=== PATIENT | female | born 1955 | race Two or more races ===

== ENCOUNTER → 2018-01-06 09:32 | Outpatient (CLI) | payer OTHER, SELFPAY ==
[2018-01-06 13:03] LABS: Anion Gap 8 (5-15); BUN 10 mg/dL (7-18); BUN/Creat Ratio 14.9 RATIO (10-20); Calcium,Total 9.1 mg/dL (8.5-10.1); Chloride 105 mmol/L (98-107); Cholesterol 195 mg/dL (200); Creatinine, Serum 0.67 mg/dL (0.55-1.02); EST Glomerular Filtration Rate 95 mL/min (>60); Est Glom Filt Rate - Afr Amer 115 mL/min (>60); Glucose 95 mg/dL (74-106); High Density Lipoprotein 46 mg/dL; Potassium 3.9 mmol/L (3.5-5.1); Sodium Level 138 mmol/L (136-145); Thyroid Stim Hormone (TSH) 2.64 uIU/mL (0.358-3.74); Triglycerides 130 mg/dL; Very Low Density Lipoprotein 26 mg/dL (5-40)
== END ==
PROVIDERS: Family Provider Family Medicine; PCP Family Medicine; Visit Provider Family Medicine
DX: E03.9 Hypothyroidism, unspecified (principal); E78.00 Pure hypercholesterolemia, unspecified; I10 Essential (primary) hypertension
CPT/HCPCS: 36415; 80048; 80061; 84443

== ENCOUNTER → 2018-02-19 08:18 | Outpatient (CLI) | payer OTHER, SELFPAY ==
--- NOTE | 2018-02-19 08:20 | BI_ITS ---
MAMMOGRAPHY - BILATERAL SCREENING REASON FOR EXAM: Female, 62 years old. Routine annual screening examination. PERTINENT HISTORY: Non-contributory. TECHNIQUE: Digital bilateral breast gregory (3D mammographic acquisition) in the CC and MLO projections. 2-D mediolateral oblique (MLO) and craniocaudad (CC) views of both breasts were obtained. CAD: Full Field Digital Mammography with Computer Added Detection was performed. COMPARISON: Comparison is made with prior study dated July 29, 2014 November 08, 2011. FINDINGS: Breast Composition: There are scattered areas of fibroglandular density. There are no dominant masses or suspicious calcifications. Stable 7 mm x 7 mm well-defined nodule in the inferior slightly medial aspect of the right breast. A prior ultrasound, this was demonstrated to be a small cyst. No other significant abnormalities are identified. There has been no significant change since the prior study. BI/SCREENING MAMM (CAD), BILAT IMPRESSION: Stable bilateral screening mammogram. Yearly follow-up mammogram recommended. (A) ASSESSMENT CATEGORY: BIRADS Category 2: Benign. A letter regarding these results will be sent to the patient by the facility within 30 days. Approximately 10% of breast cancers are not detected by mammography. A normal mammogram should not delay biopsy of a clinically suspicious abnormality. [id number] Electronically Signed: Alejo Merritt MD at 9:30 EDT Tel [phone], Service support ,
== END ==
PROVIDERS: Family Provider Family Medicine; PCP Family Medicine; Visit Provider Obstetrics & Gynecology
DX: Z12.31 Encounter for screening mammogram for malignant neoplasm of breast (principal)
CPT/HCPCS: 77063; 77067

== ENCOUNTER → 2018-12-23 09:11 | Outpatient (CLI) | payer OTHER, SELFPAY ==
[2018-12-23 11:24] LABS: Anion Gap 7 (5-15); BUN 8 mg/dL (7-18); BUN/Creat Ratio 11.1 RATIO (10-20); Chloride 106 mmol/L (98-107); Creatinine, Serum 0.72 mg/dL (0.55-1.02); EST Glomerular Filtration Rate 87 mL/min (>60); Est Glom Filt Rate - Afr Amer 105 mL/min (>60); Glucose 93 mg/dL (74-106); Sodium Level 141 mmol/L (136-145); T4 Total, Thyroxin 13.6 ug/dL (4.8-13.9); Thyroid Stim Hormone (TSH) 5.16 uIU/mL (0.358-3.74)
== END ==
PROVIDERS: Family Provider Family Medicine; PCP Family Medicine; Referring Provider Family Medicine; Visit Provider Family Medicine
DX: I10 Essential (primary) hypertension (principal); E03.9 Hypothyroidism, unspecified
CPT/HCPCS: 36415; 80048; 84436; 84443

== ENCOUNTER → 2020-02-08 09:25 | Outpatient (CLI) | payer OTHER, SELFPAY ==
[2020-02-08 13:36] LABS: Anion Gap 4 (5-15); BUN 10 mg/dL (7-18); Calcium,Total 9.2 mg/dL (8.5-10.1); Chloride 107 mmol/L (98-107); Cholesterol 194 mg/dL (200); Creatinine, Serum 0.67 mg/dL (0.55-1.02); EST Glomerular Filtration Rate 95 mL/min (>60); Est Glom Filt Rate - Afr Amer 115 mL/min (>60); Glucose 99 mg/dL (74-106); High Density Lipoprotein 49 mg/dL; Potassium 3.7 mmol/L (3.5-5.1); Sodium Level 139 mmol/L (136-145); T4 Total, Thyroxin 13.4 ug/dL (4.8-13.9); Thyroid Stim Hormone (TSH) 0.95 uIU/mL (0.358-3.74); Triglycerides 128 mg/dL; Very Low Density Lipoprotein 26 mg/dL (5-40)
== END ==
PROVIDERS: PCP Family Medicine; Referring Provider Family Medicine; Visit Provider Family Medicine
DX: Z00.00 Encounter for general adult medical examination without abnormal findings (principal)
CPT/HCPCS: 36415; 80048; 80061; 84436; 84443

== ENCOUNTER → 2020-04-07 15:21 | Outpatient (CLI) | payer OTHER, SELFPAY ==
--- NOTE | 2020-04-07 15:22 | BI_ITS ---
MAMMOGRAPHY - BILATERAL SCREENING REASON FOR EXAM: Female, 65 years old. Routine annual screening examination. PERTINENT HISTORY: Non-contributory. TECHNIQUE: Digital bilateral breast mackenzie (3D mammographic acquisition) in the CC and MLO projections. 2-D mediolateral oblique (MLO) and craniocaudad (CC) views of both breasts were obtained. CAD: Full Field Digital Mammography with Computer Added Detection was performed. COMPARISON: Comparison is made with prior study dated 02/19/2018 and 07/29/2014. FINDINGS: Breast Composition: There are scattered areas of fibroglandular density. There are no dominant masses or suspicious calcifications. Since prior study, there has been mild increased size of the retroareolar nodule in the right breast. It presently measures 1 cm x 1.2 cm. Adjacent to this, there is a 5.3 mm well-defined nodule. Correlation with ultrasound is recommended for further evaluation. No other significant abnormalities are identified. BI/SCREEN MAMM (CAD) W/MACKENZIE BILAT IMPRESSION: Mild increase in size of the retroareolar nodule in the right breast as described. Correlation with ultrasound is recommended. ASSESSMENT CATEGORY: BIRADS Category 0: Incomplete. Need additional imaging evaluation. A letter regarding these results will be sent to the patient by the facility within 30 days. Approximately 10% of breast cancers are not detected by mammography. A normal mammogram should not delay biopsy of a clinically suspicious abnormality. [id number] Electronically Signed: Alejo Merritt, at 8:36 EST , Service support ,
--- NOTE | 2020-04-07 15:23 | BD_ITS ---
STUDY: DUAL ENERGY X-RAY ABSORPTIOMETRY / DXA REASON FOR EXAM: Female, 65 years old. Age of kareen 50. Pat is 168.3# and 65.5 and quot; a loss of 1.5 and quot; per pat. Past hx of taking a steroid for about 1 year. Takes levothyroxin. Has a diuretic in her BPM. Exercises a little. TECHNIQUE: Bone Mineral Density (BMD) measurements of lumbar spine and bilateral hips were obtained. COMPARISON: Comparison is made with prior study dated 11/08/2011. FINDINGS: Lumbar Spine (L1-L4): g/cm2 (0.902) / T-score (-2.5) / Z-score (-1.1) Findings are suggestive of osteoporosis with a high fracture risk. Increased kyphosis. Left Femur Total: g/cm2 (0.962) / T-score (-0.4) / Z-score (0.7) Left Femoral Neck: g/cm2 (0.841) / T-score (-1.4) / Z-score (0.0) Right Femur Total: g/cm2 (0.968) / T-score (-0.3) / Z-score (0.8) Right Femoral Neck: g/cm2 (0.867) / T-score (-1.2) / Z-score (0.1) The T-Scores on the most recent prior examination were: Lumbar Spine (L1-L4): There has been worsening of bone density since the previous examination. Left Femur Total: which represents a worsening of 2.8%. Right Femur Total: which represents a worsening of 3.6%. BD/Dexa Bone Density Study IMPRESSION: The patient is considered osteoporotic as outlined below according to World Sahil Organization (WHO) criteria with a high fracture risk. There has been worsening of bone density since the previous examination. Reference Information: The T-score is the number of standard deviations above or below the standard which is normal for young adults at their peak bone mineral density. The World Health Organization (WHO) interprets the T-scores as follows: Above -1 Normal bone density Between -1 and -2.5 Osteopenia Equal to / or below -2.5 Osteoporosis As a practical clinical guideline, osteopenia may be graded as follows: Mild -1 through -1.5 Moderate -1.6 through -2.0 Severe -2.1 through -2.4 The Z-score is the number of standard deviations above or below age-matched controls. A Z-score of less than -1.5 would be considered abnormal. References: 1. NIH Osteoporosis and Related Bone Diseases www osteo.org 2. International Society for Clinical Densitometry www iscd.org 3. National Osteoporosis Foundation www nof.org Electronically Signed: Alejo Merritt, at 15:09 EST , Service support ,
== END ==
PROVIDERS: PCP Family Medicine; Referring Provider Family Medicine; Visit Provider Family Medicine
DX: N95.9 Unspecified menopausal and perimenopausal disorder (principal); Z12.31 Encounter for screening mammogram for malignant neoplasm of breast
CPT/HCPCS: 77063; 77067; 77080

== ENCOUNTER → 2020-04-11 09:00 | Outpatient (CLI) | payer OTHER, SELFPAY ==
--- NOTE | 2020-04-11 09:02 | US_ITS ---
STUDY: ULTRASOUND BREAST - RIGHT REASON FOR EXAM: Female, 65 years old. Abnormal screening mammogram. TECHNIQUE: Axial and longitudinal images of the RIGHT breast were performed with a high resolution ultrasound transducer. # OF IMAGES: 72 COMPARISON: Comparison is made with prior mammogram dated 04/07/2020 and prior ultrasound of the right breast dated 08/02/2014. FINDINGS: RIGHT Breast: Multiple cysts are seen at the 9 o''clock and 10 o''clock position of the breast. The largest cyst measures 1.3 cm x 1 cm x 1.1 cm. This is dominant nodule seen on the mammogram. US/Breast Limited Unilateral IMPRESSION: Multiple retroareolar cysts. ASSESSMENT CATEGORY: BIRADS Category 2: Benign. A letter regarding these results will be sent to the patient by the facility within 30 days. Electronically Signed: Alejo Merritt, at 14:53 EST , Service support ,
== END ==
PROVIDERS: PCP Family Medicine; Referring Provider Family Medicine; Visit Provider Family Medicine
DX: N63.10 Unspecified lump in the right breast, unspecified quadrant (principal)
CPT/HCPCS: 76642

== ENCOUNTER 2020-06-30 16:27 | Outpatient (RCR) | payer OTHER, SELFPAY ==
[2020-06-30] MEDS: COVID-19 VACC, MRNA(PFIZER)/PF 30 MCG/0.3 ML SYRINGE IM (16:25)
[2020-07-21] MEDS: COVID-19 VACC, MRNA(PFIZER)/PF 30 MCG/0.3 ML SYRINGE IM (16:01)
== END 2020-10-04 23:59 ==
LOC: IMMUN 16:27
PROVIDERS: PCP Family Medicine; Referring Provider Family Medicine; Visit Provider Family Medicine
DX: Z23 Encounter for immunization (principal)
CPT/HCPCS: 0001A; 0002A; 91300

== ENCOUNTER 2021-01-27 08:33 | Outpatient (RCR) | payer BC, SELFPAY ==
--- NOTE | 2021-04-10 14:53 | HP.PTEVAL_ITS ---
Patient's Visit Information LES BUENO is a 66 year old F referred to Physical Therapy by Dr. Rajesh Reyna MD with a diagnosis of RTC rupture, cervicalgia. Date of Evaluation: 01/27/21 Physical Therapist: Xavier Gonzalez DPT - Visit Plan Frequency: 2x /Week Duration: 6 Weeks Plan: Start with AAROM and AROM of L shoulder. Phase II and phase III. - Subjective Pt. is here today for her initial evaluation with diagnosis of L RTC rupture, cervicalgia. Pt. reports having pain for a few months now. No mech of injury. Pt. does reports some weakness in her L arm and pain that starts in her shoulder and extends down her L arm to a 3rd and 4th. pt. reports overall having trouble lifting her arm and trouble with sleeping. She is hopeful for exercises that may help her with her pain and progress with strengthening. - Pain L shoulder Pain Intensity (Out of 10): 2 Pain Intensity Range: 0, 7 - Objective POSTURE: Pt. has decent posture in stance. Equal shoulder heights, increased thoracic kyphosis with increased cervical extension at CT junction noted. PALPATION: Pt. has tenderness at supraspinatus insertion near bicipital groove. Pt. has some cervical spine soreness at C4-C6 (more at transverse process and along UT muscle region). NEURO: normal sensation and DTR of BUEs. ROM: R shoulder- full without issues.. L shoulder: AROM: flexion 165deg increase NW (worse with eccentric lowering), abd 160deg increase NW (worse with eccentric lowering), functional ER C4 NE, functional IR L2 NE. Pt. has increased pain with returning to neutral from all positioning. MMT: R shoulder: normal 5/5 throughout. L shoulder: elbow: flexion 4/5, ext 4+/5; shoulder- flexion 3+/5, abd 3/5, ext 4+/5, ER 3-/5, IR 4+/5. - Balance/Special Test Scores Quick DASH Score: 54.5450 - Goals Goal 1:: LTG: Pt. to be compliant with HEP Goal Time Frame: 2-4 Weeks Goal 2:: STG: Pt. to sleep throughout the night without increase in symptoms. Goal Time Frame: 2 Weeks Goal 3:: LTG: Pt. to have increased AROM of L shoulder to full without increase in symptoms. Goal Time Frame: 2-4 Weeks Goal 4:: LTG: Pt. to have increased L UE strength to 4/5 throughout. Goal Time Frame: 2-4 Weeks - Rehabilitation Potential Physical Therapy Diagnosis: Pt. has signs and symptoms consistent with RTC rupture and neck pain. Pt. has marked L sided weakness and limited ROM. Pt. would benefit from PT to address above limitations progressing back to prior functional as tolerated. Rehabilitation Potential: Good - Anticipated Interventions Patient/Client Instruction: Educate patient on: Condition, Plan of Care, Risk Factors, Benefits of Fitness Program For the Purpose of:: To improve self management, To prevent re-injury, To improve ability to perform tasks related to life management, To improve tolerance to ADL's Therapeutic Exercise to Include: Strength training, Power training, Active ROM, Scapular Strength/Stabilization For the Purpose of:: To decrease pain, To decrease swelling/inflammation, To increase ROM, To improve nutrient delivery to tissue, To improve muscle performance and motor function, To improve ability to perform ADL's Thank you for the opportunity to evaluate your patient. For Medicare and Medicare HMO plans, please review the plan of care and approve it. It will need to be FAXED BACK to us at [phone] for Medicare purposes. For Medicare only, by signing this I certify the plan of care. Please let me know if there are questions or concerns regarding this plan of car e. Physician Signature: Date:
--- NOTE | 2021-04-11 13:32 | HP.PT.NRP ---
LES BUENO was seen in my office for initial evaluation on 01/27/21. The following Plan of Care was established for this patient: Initial Frequency: 2x /Week Initial Duration: 6 Weeks Patient/Client Instruction: Educate patient on: Condition, Plan of Care, Risk Factors, Benefits of Fitness Program For the Purpose of:: To improve self management, To prevent re-injury, To improve ability to perform tasks related to life management, To improve tolerance to ADL's Therapeutic Exercise to Include: Strength training, Power training, Active ROM, Scapular Strength/Stabilization For the Purpose of:: To decrease pain, To decrease swelling/inflammation, To increase ROM, To improve nutrient delivery to tissue, To improve muscle performance and motor function, To improve ability to perform ADL's This patient was last seen in our office 01/27/21. Pertinent comments regarding their Physical therapy will appear below: Pt. was seen for her L RTC tear in physical therapy. She was seen for her initial evaluation and was to do exercises on her own. She has not been seen since. Pt. will be DC from PT at this point in time. At this point I will be discontinuing this patient from physical therapy. I would be happy to see this patient again in the future if found appropriate by the physician. Thank you! VINNIE LandryT Balance/Gait/Functional tests - Balance/Special Test Scores Quick DASH Score: 54.5475
== END 2021-01-27 19:00 | disposition home or self-care (01) ==
LOC: PT 08:33
PROVIDERS: PCP Family Medicine; Referring Provider Orthopaedic Surgery; Visit Provider Orthopaedic Surgery
DX: M75.122 Complete rotator cuff tear or rupture of left shoulder, not specified as traumatic (principal)
CPT/HCPCS: 97110; 97161

== ENCOUNTER → 2021-02-27 15:22 | Outpatient (CLI) | payer BC, SELFPAY ==
[2021-02-27 18:11] LABS: T4 Total, Thyroxin 12.8 ug/dL (4.8-13.9); Thyroid Stim Hormone (TSH) 1.74 uIU/mL (0.358-3.74)
== END ==
PROVIDERS: PCP Family Medicine; Visit Provider Family Medicine
DX: E03.9 Hypothyroidism, unspecified (principal)
CPT/HCPCS: 36415; 84436; 84443

== ENCOUNTER → 2021-09-11 | Outpatient (CLI) | payer BC, SELFPAY ==
[2021-09-11 10:58] LABS: Anion Gap 7 (5-15); BUN 10 mg/dL (7-18); BUN/Creat Ratio 13.9 RATIO (10-20); Calcium,Total 8.8 mg/dL (8.5-10.1); Chloride 106 mmol/L (98-107); Cholesterol 189 mg/dL (200); Creatinine, Serum 0.72 mg/dL (0.55-1.02); EST Glomerular Filtration Rate 87 mL/min (>60); Est Glom Filt Rate - Afr Amer 105 mL/min (>60); Glucose 106 mg/dL (74-106); High Density Lipoprotein 39 mg/dL; Potassium 3.9 mmol/L (3.5-5.1); Sodium Level 138 mmol/L (136-145); Triglycerides 118 mg/dL; Very Low Density Lipoprotein 24 mg/dL (5-40)
[2021-09-11 11:30] LABS: Vitamin D,25 Hydroxy 13.7 ng/mL
[2021-09-11 12:52] LABS: Microalbumin,Random Urine 5.2 mg/L (NO RANGE EST.); Microalbumin:Creatinine Ratio 12.2 mg/g CRE (<30 mg/g CRE)
== END | disposition home or self-care (01) ==
LOC: MFPLAB 08:34
PROVIDERS: PCP Family Medicine; Visit Provider Family Medicine
DX: I10 Essential (primary) hypertension (principal); E55.9 Vitamin D deficiency, unspecified
CPT/HCPCS: 36415; 80048; 80061; 82043; 82306; 82570

== ENCOUNTER → 2022-03-16 | Outpatient (CLI) | payer BC, SELFPAY ==
[2022-03-16 18:21] LABS: T4 Total, Thyroxin 15.3 ug/dL (4.8-13.9); Thyroid Stim Hormone (TSH) 3.72 uIU/mL (0.358-3.74)
== END | disposition home or self-care (01) ==
LOC: MFPLAB 14:47
PROVIDERS: PCP Family Medicine; Visit Provider Family Medicine
DX: E03.9 Hypothyroidism, unspecified (principal)
CPT/HCPCS: 36415; 84436; 84443

== ENCOUNTER → 2022-05-09 | Outpatient (CLI) | payer BC, SELFPAY ==
--- NOTE | 2022-05-09 12:55 | BI_ITS ---
MAMMOGRAPHY - BILATERAL SCREENING REASON FOR EXAM: Female, 67 years old. Routine annual screening examination. PERTINENT HISTORY: Non-contributory. TECHNIQUE: Digital bilateral breast mackenzie (3D mammographic acquisition) in the CC and MLO projections. 2-D mediolateral oblique (MLO) and craniocaudad (CC) views of both breasts were obtained. CAD: Full Field Digital Mammography with Computer Added Detection was performed. COMPARISON: Comparison is made with prior study dated 04/07/2020 and 02/19/2018. FINDINGS: Breast Composition: There are scattered areas of fibroglandular density. The previously seen 1.2 cm x 1 cm nodule in the retroareolar region of the right breast is resolved. Stable residual 5.3 mm nodule in the retroareolar region. No other significant abnormalities are identified. BI/SCRN MAMM (CAD)W/MACKENZIE BILAT IMPRESSION: Stable bilateral screening mammogram. Yearly follow-up mammogram recommended. (A) ASSESSMENT CATEGORY: BIRADS Category 2: Benign. A letter regarding these results will be sent to the patient by the facility within 30 days. Approximately 10% of breast cancers are not detected by mammography. A normal mammogram should not delay biopsy of a clinically suspicious abnormality. [id number] Electronically Signed: Alejo Merritt MD at 14:13 EST ,
--- NOTE | 2022-05-09 13:03 | BD_ITS ---
STUDY: DUAL ENERGY X-RAY ABSORPTIOMETRY / DXA REASON FOR EXAM: Female, 67 years old. 733.00OsteoporosisBONE DENSITY REASON FOR EXAM TECHNIQUE: Bone Mineral Density (BMD) measurements of lumbar spine and bilateral hips were obtained. COMPARISON: Comparison is made with prior study 04/07/2020. FINDINGS: Lumbar Spine (L1-L4): g/cm2 (0.861) / T-score (-2.0) / Z-score (-0.1) Findings are suggestive of osteopenia with a moderate fracture risk. Left Femur Total: g/cm2 (0.941) / T-score (0.0) / Z-score (1.2) Left Femoral Neck: g/cm2 (0.758) / T-score (-0.8) / Z-score (0.7) Right Femur Total: g/cm2 (0.929) / T-score (-0.2) / Z-score (1.1) Right Femoral Neck: g/cm2 (0.699) / T-score (-1.4) / Z-score (0.2) The T-Scores on the most recent prior examination were: Lumbar Spine (L1-L4): There has been improvement of bone density since the previous examination. Left Femur Total: which represents an improvement of 4.9%. Right Femur Total: which represents an improvement of 2%. BD/Dexa Bone Density Study IMPRESSION: The patient is considered osteopenic as outlined below according to World Sahil Organization (WHO) criteria with a moderate fracture risk. There has been improvement of bone density since the previous examination. Reference Information: The T-score is the number of standard deviations above or below the standard which is normal for young adults at their peak bone mineral density. The World Health Organization (WHO) interprets the T-scores as follows: Above -1 Normal bone density Between -1 and -2.5 Osteopenia Equal to / or below -2.5 Osteoporosis As a practical clinical guideline, osteopenia may be graded as follows: Mild -1 through -1.5 Moderate -1.6 through -2.0 Severe -2.1 through -2.4 The Z-score is the number of standard deviations above or below age-matched controls. A Z-score of less than -1.5 would be considered abnormal. References: 1. NIH Osteoporosis and Related Bone Diseases www osteo.org 2. International Society for Clinical Densitometry www iscd.org 3. National Osteoporosis Foundation www nof.org Electronically Signed: Alejo Merritt MD at 8:31 EST ,
== END | disposition home or self-care (01) ==
LOC: OPBD 12:53
PROVIDERS: PCP Family Medicine; Visit Provider Family Medicine
DX: M81.0 Age-related osteoporosis without current pathological fracture (principal); Z12.31 Encounter for screening mammogram for malignant neoplasm of breast
CPT/HCPCS: 77063; 77067; 77080

== ENCOUNTER → 2022-06-13 | Outpatient (CLI) | payer BC, SELFPAY | END | disposition home or self-care (01) | LOC: MFPLAB 10:16 | PROVIDERS: PCP Family Medicine; Referring Provider Family Medicine; Visit Provider Family Medicine | DX: R39.9 Unspecified symptoms and signs involving the genitourinary system (principal) | CPT/HCPCS: 87086; 87088 ==

== ENCOUNTER → 2022-09-11 | Outpatient (CLI) | payer BC, SELFPAY ==
[2022-09-11 10:55] LABS: Microalbumin,Random Urine 5.3 mg/L (NO RANGE EST.)
[2022-09-11 11:00] LABS: Anion Gap 5 (5-15); BUN 10 mg/dL (7-18); BUN/Creat Ratio 17.7 RATIO (10-20); Calcium,Total 8.9 mg/dL (8.5-10.1); Chloride 108 mmol/L (98-107); Cholesterol 199 mg/dL (200); Creatinine, Serum 0.57 mg/dL (0.55-1.02); EST Glomerular Filtration Rate 114 mL/min (>60); Est Glom Filt Rate - Afr Amer 138 mL/min (>60); Glucose 110 mg/dL (74-106); High Density Lipoprotein 46 mg/dL; Potassium 4.1 mmol/L (3.5-5.1); Sodium Level 141 mmol/L (136-145); Triglycerides 139 mg/dL; Very Low Density Lipoprotein 28 mg/dL (5-40)
== END | disposition home or self-care (01) ==
LOC: MTLAB 09:14
PROVIDERS: PCP Family Medicine; Referring Provider Family Medicine; Visit Provider Family Medicine
DX: I10 Essential (primary) hypertension (principal)
CPT/HCPCS: 36415; 80048; 80061; 82043; 82570

== ENCOUNTER → 2023-03-06 | Outpatient (CLI) | payer MEDICARE, BC, SELFPAY ==
[2023-03-06 12:40] LABS: Vitamin D,25 Hydroxy 21.7 ng/mL
[2023-03-06 12:46] LABS: Anion Gap 5 (5-15); BUN 9 mg/dL (7-18); BUN/Creat Ratio 14.7 RATIO (10-20); Calcium,Total 8.9 mg/dL (8.5-10.1); Chloride 105 mmol/L (98-107); Creatinine, Serum 0.61 mg/dL (0.55-1.02); EST Glomerular Filtration Rate 104 mL/min (>60); Est Glom Filt Rate - Afr Amer 126 mL/min (>60); Glucose 111 mg/dL (74-106); Sodium Level 137 mmol/L (136-145); T4 Total, Thyroxin 13.3 ug/dL (4.8-13.9); Thyroid Stim Hormone (TSH) 0.88 uIU/mL (0.358-3.74)
== END | disposition home or self-care (01) ==
LOC: MTLAB 10:10
PROVIDERS: PCP Family Medicine; Referring Provider Family Medicine; Visit Provider Family Medicine
DX: E55.9 Vitamin D deficiency, unspecified (principal); E03.9 Hypothyroidism, unspecified
CPT/HCPCS: 36415; 80048; 82306; 84436; 84443

== ENCOUNTER → 2023-09-09 | Outpatient (CLI) | payer MEDICARE, BC, SELFPAY ==
[2023-09-09 12:27] LABS: Absolute Lymphocyte Count 3.08 X10^3/uL (0.83-4.51); Absolute Neutrophil Count 2.3 X10^3/uL (2.0-7.7); Basophil# 0.06 X10^3/uL; Eosinophil# 0.29 X10^3/uL; Eosinophils% 4.6 % (0-5); Hematocrit 36.9 % (37-47); Hemoglobin 11.5 g/dL (12.0-15.0); Lymphocyte # 3.08 X10^3/ul (0.83-4.51); Lymphocyte % 48.9 % (19-41); Mean Corp Hgb Conc 31.2 g/dL (32-36); Mean Corpuscular Hgb 27.1 pg (27.0-32.0); Mean Platelet Vol. 11.7 fl (6.2-12.0); Monocyte# 0.54 X10^3/uL; Monocyte% 8.6 % (0-10); NRBC Flagged by Analyzer 0 % (0-5); Neutrophil # 2.32 X10^3/uL (2.7-7.7); Neutrophil % 36.7 % (47-70); Platelet Count 307 K/mm3 (150-450); RBC Distribution Width SD 44.6 fl (35.1-43.9); Red Blood Count 4.24 M/mm3 (4.2-5.4); White Blood Count 6.3 K/mm3 (4.4-11.0)
[2023-09-09 12:37] LABS: Protein, Urine (Random) 7.4 mg/dL (<11.9); Protein:Creat Ratio 76 mg/g CRE (0-200)
[2023-09-09 13:19] LABS: Anion Gap 5 (5-15); BUN 10 mg/dL (7-18); BUN/Creat Ratio 15.1 RATIO (10-20); Calcium,Total 8.9 mg/dL (8.5-10.1); Chloride 106 mmol/L (98-107); Cholesterol 190 mg/dL (200); Creatinine, Serum 0.66 mg/dL (0.55-1.02); EST Glomerular Filtration Rate 94 mL/min (>60); Est Glom Filt Rate - Afr Amer 114 mL/min (>60); Glucose 107 mg/dL (74-106); High Density Lipoprotein 47 mg/dL; Iron 65 ug/dL (50-170); Potassium 3.8 mmol/L (3.5-5.1); Sodium Level 137 mmol/L (136-145); Thyroid Stim Hormone (TSH) 1.45 uIU/mL (0.358-3.74); Triglycerides 109 mg/dL; Very Low Density Lipoprotein 22 mg/dL (5-40)
[2023-09-09 17:31] LABS: Vitamin D,25 Hydroxy 16.4 ng/mL
== END | disposition home or self-care (01) ==
LOC: MFPLAB 10:22
PROVIDERS: PCP Family Medicine; Visit Provider Family Medicine
DX: E03.9 Hypothyroidism, unspecified (principal); E55.9 Vitamin D deficiency, unspecified; D64.9 Anemia, unspecified; I10 Essential (primary) hypertension; R73.02 Impaired glucose tolerance (oral)
CPT/HCPCS: 36415; 80048; 80061; 82306; 82570; 83036; 83540; 84156; 84436; 84443; 85025

== ENCOUNTER 2024-04-30 15:53 | Outpatient (RCR) | payer MEDICARE, BC, SELFPAY ==
--- NOTE | 2024-04-30 18:14 | HP.PTEVAL ---
Patient's Visit Information Visit Information Visit Information: LES BUENO is a 69 year old F referred to Physical Therapy by Dr. Mingo Hollingsworth MD with a diagnosis of CERVICAL DISC DEGENERATION,MID CERVICAL REGION. Date of Evaluation: 04/30/24 Physical Therapist: Cisco Corral, PT, Cert MDT, OCS Visit Plan Plan: PT EVAL ONLY AND D/C Subjective Subjective: This 69 y/o female presents to physical therapy with cervical pain. Patient has had left cervical and shoulder pain for ~ 3years but 3-4 months noticed increase left neck pain. Seen DR Hollingsworth and imaging showed C4-5 and C5-6 disc height loss with osteophytosis. There is no dynamic instability flexion-extension views. Patient has hyperlordosis compensatory to thoracic kyphosis. MRI from February 2023 is available which shows multilevel cervical disc degeneration with mild foraminal stenosis bilaterally especially at C4-6. Patient Left side cervical dull ache. Aggravating factors turning neck ,some flexion .Alleviating factors massage and heat.Denies paresthesia/tingling-. Patient has difficulty sleeping but not pain related. Denies nausea/tinnitus/ROSENBAUM. Patient has no prior tx or PT. Patient condition affects QOL and function. Patient goals to decrease pain. 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 Pain Left Neck: Pain Intensity (Out of 10): 2 Pain Intensity Range: 10 Objective Objective: POSTURE: mild forward posture rounded shoulders head protruded NEURO: denies paresthesia/tingling ,reflexes C5-6-7 2/3 PALAPTION: tender UT/levator AROM BUE: WFL grossly MMT: BUE 4/5 CERVICAL ROM: flexion min loss ,extension ,lateral flexion ,rotation mod loss Special Tests C/S Radiculapathy - Left Upper limb tension test: Negative C/S Radiculapathy - Right Upper limb tension test: Negative C/S Radiculapathy - Left Spurlings: Positive C/S Radiculapathy - Right Spurlings: Negative C/S Radiculapathy - Left Cervical distraction: Negative C/S Radiculapathy - Right Cervical distraction: Negative C/S Radiculapathy - Left Relief test: Negative C/S Radiculapathy - Right Relief test: Negative Sharp Alondra: Negative Vertebral Artery Test: Negative Alar Ligament Test: Negative Goals Goal 1:: Patient was provided with HEP Goal Time Frame: 1VISIT Rehabilitation Potential Physical Therapy Diagnosis: This patient has cervical pain with pain with motion and positioning but improving thus will benefit from skilled PT Rehabilitation Potential: Fair Anticipated Interventions Patient/Client Instruction: Educate patient on: Condition and Plan of Care For the Purpose of:: To increase ROM and Other Other: HEP Therapeutic Exercise to Include: Postural training and Flexibilty training For the Purpose of:: To decrease pain and To increase ROM Text: Thank you for the opportunity to evaluate your patient. For Medicare and Medicare HMO plans, please review the plan of care and approve it. It will need to be FAXED BACK to us at [phone] for Medicare purposes. For Medicare only, by signing this I certify the plan of care. Please let me know if there are questions or concerns regarding this plan of care. Physician Signature: Date:
== END 2024-04-30 19:00 | disposition home or self-care (01) ==
LOC: PT 15:53
PROVIDERS: PCP Family Medicine; Referring Provider Orthopaedic Surgery Orthopaedic Surgery of the Spine; Visit Provider Orthopaedic Surgery Orthopaedic Surgery of the Spine
DX: M50.320 Other cervical disc degeneration, mid-cervical region, unspecified level (principal)
CPT/HCPCS: 97110; 97161

== ENCOUNTER → 2024-05-05 | Outpatient (CLI) | payer MEDICARE, BC, SELFPAY ==
[2024-05-05 15:51] LABS: Anion Gap 5 (5-15); BUN 10 mg/dL (7-18); Calcium,Total 8.9 mg/dL (8.5-10.1); Chloride 107 mmol/L (98-107); Cholesterol 177 mg/dL (200); Creatinine, Serum 0.67 mg/dL (0.55-1.02); EST Glomerular Filtration Rate 94 mL/min (>60); Est Glom Filt Rate - Afr Amer 113 mL/min (>60); Glucose 102 mg/dL (74-106); High Density Lipoprotein 45 mg/dL; Potassium 3.9 mmol/L (3.5-5.1); Sodium Level 138 mmol/L (136-145); T4 Total, Thyroxin 13.5 ug/dL (4.8-13.9); Triglycerides 116 mg/dL; Very Low Density Lipoprotein 23 mg/dL (5-40)
[2024-05-05 16:02] LABS: Protein, Urine (Random) 8.1 mg/dL (<11.9); Protein:Creat Ratio 76 mg/g CRE (0-200)
[2024-05-05 16:49] LABS: Hemoglobin A1c 6.2 % (3.8-5.6)
== END | disposition home or self-care (01) ==
LOC: MFPLAB 11:49
PROVIDERS: PCP Family Medicine; Referring Provider Family Medicine; Visit Provider Family Medicine
DX: E03.9 Hypothyroidism, unspecified (principal); I10 Essential (primary) hypertension; R73.02 Impaired glucose tolerance (oral)
CPT/HCPCS: 36415; 80048; 80061; 82570; 83036; 84156; 84436; 84443

== ENCOUNTER → 2024-05-12 | Outpatient (CLI) | payer MEDICARE, BC, SELFPAY ==
--- NOTE | 2024-05-12 14:38 | BI_ITS ---
MAMMOGRAPHY - BILATERAL SCREENING REASON FOR EXAM: Female, 69 years old. Routine annual screening examination. PERTINENT HISTORY: Non-contributory. TECHNIQUE: Digital bilateral breast mackenzie (3D mammographic acquisition) in the CC and MLO projections. 2-D mediolateral oblique (MLO) and craniocaudad (CC) views of both breasts were obtained. CAD: Full Field Digital Mammography with Computer Added Detection was performed. COMPARISON: Comparison is made with prior study dated May 09, 2022 and April 07, 2020. FINDINGS: Breast Composition: There are scattered areas of fibroglandular density. There are no dominant masses or suspicious calcifications. No other significant abnormalities are identified. There has been no significant change since the prior study. BI/SCRN MAMM (CAD)W/MACKENZIE BILAT IMPRESSION: Stable bilateral screening mammogram. Yearly follow-up mammogram recommended. (A) ASSESSMENT CATEGORY: BIRADS Category 1: Negative. A letter regarding these results will be sent to the patient by the facility within 30 days. Approximately 10% of breast cancers are not detected by mammography. A normal mammogram should not delay biopsy of a clinically suspicious abnormality. [id number] Electronically Signed: Alejo Merritt MD at 8:43 EST ,
== END | disposition home or self-care (01) ==
LOC: OPBI 14:38
PROVIDERS: PCP Family Medicine; Referring Provider Family Medicine; Visit Provider Family Medicine
DX: Z12.31 Encounter for screening mammogram for malignant neoplasm of breast (principal)

== ENCOUNTER 2025-01-26 12:00 | Outpatient (RCR) | payer MEDICARE, BC, SELFPAY ==
--- NOTE | 2025-01-19 09:18 | HP.PTEVAL_ITS ---
Patient's Visit Information Visit Information Visit Information: LES BUENO is a 69 year old F referred to Physical Therapy by Dr. Rodrigo Tucker MD with a diagnosis of L ankle OA. Date of Evaluation: 01/14/25 Physical Therapist: Xavier Gonzalez DPT Visit Plan Frequency: 1-2x /Week Duration: 4 Weeks Plan: US to post tib tendon post tib strengthening, ankle intrisic strengthening I gave her ankle INV and banded toe curls for HEP Pt. would like to come more US and manual techniques and do her progressive exercises at home. Subjective Subjective: Pt. is here today for her initial evaluation with diagnosis of L ankle OA and pes planus. Pt. reports having increased ankle pain for a few years now, but has become worse more recently. Pt. reports most of her pain is at the medial ankle and up the medial tibia. Pt. reports no N/T, pain mostly with walking and standing. Pt. has done some exercises without much relief. The doctor did recommend use of a brace. She is being fit for one in a few weeks. Pt. enjoys walking recreationally, but has had to hold due to pain in her foot. Pt. is sleeping well without major issues. Pt. is hopeful to reduce symptoms in order to get back to all walking without issues. Pain L medial ankle: Pain Intensity (Out of 10): 2 Pain Intensity Range: 0 and 4 Objective Objective: POSTURE: Normal ERICKA, Pt. does have increased pes planus L worse than R. Pronation in stance. PALPATION: Pt. has tenderness along post tib tendon. No much at longitudinal arch. No tibial pain. NEURO: normal throughout. ROM: Pt. has normal ankle DF, decent ROM throughout bilateral ankles. MMT: Pt. has marked weakenss with INV bilaterally, L worse than R. Pt. has 4/5 ankle PF and 4/5 ankle DF. 4-/5 ankle EVR and IVR motions. GAIT: pt. ambulates without AD, she has marked pronation during stance phase. No major antalgic pattern noted. Balance/Special Test Scores Lower Extremity Functional Score: 40 Goals Goal 1:: LTG: Pt. to be able to ambulate 2-3 miles without increase in L ankle pain. Goal Time Frame: 4-6 Weeks Goal 2:: STG: pt. to ambulate throughout grocery store without increase in L ankle pain. Goal Time Frame: 4-6 Weeks Goal 3:: LTG: Pt to have increased L ankle strength to 5/5 throughout. Goal Time Frame: 4-6 Weeks Rehabilitation Potential Physical Therapy Diagnosis: Pt. has marked L ankle OA and post tibial pain. Pt. has hypomobility, weakness and increased pain in her L ankle. She would benefit from PT to address the above limitations progressing back to all recreational walking without issues. Rehabilitation Potential: Good Anticipated Interventions Patient/Client Instruction: Educate patient on: Condition, Plan of Care, Risk Factors and Benefits of Fitness Program For the Purpose of:: To foster healthy habits, To improve decision making, To facilitate caregiver knowledge, To improve self management, To prevent re- injury, To improve ability to perform tasks related to life management and To improve tolerance to ADL's Therapeutic Exercise to Include: Strength training, Power training, Postural training, Flexibilty training, Gait and locomotor training, Passive ROM and Active ROM For the Purpose of:: To decrease pain, To increase ROM, To improve nutrient delivery to tissue, To increase oxygenation perfusion, To improve muscle performance and motor function and To improve ability to perform ADL's Manual Therapy Techniques to Include: Passive ROM and Soft tissue mobilization For the Purpose of:: To decrease pain, To decrease swelling/inflammation and To increase ROM Ultrasound (thermal/non thermal): Yes For the Purpose of:: To decrease pain, To decrease swelling/inflammation and To increase ROM Text: Thank you for the opportunity to evaluate your patient. For Medicare and Medicare HMO plans, please review the plan of care and approve it. It will need to be FAXED BACK to us at [phone] for Medicare purposes. For Medicare only, by signing this I certify the plan of care. Please let me know if there are questions or concerns regarding this plan of care. Physician Signature: Date:
== END 2025-01-26 19:00 | disposition home or self-care (01) ==
LOC: PT 12:00
PROVIDERS: PCP Family Medicine; Referring Provider Orthopaedic Surgery; Visit Provider Orthopaedic Surgery
DX: M19.072 Primary osteoarthritis, left ankle and foot (principal); M25.572 Pain in left ankle and joints of left foot; M72.2 Plantar fascial fibromatosis
CPT/HCPCS: 97035; 97110; 97140; 97161